=== PATIENT | female | born 1950 | race Caucasian/White ===

== ENCOUNTER → 2017-09-25 | Day surgery (SDC) | payer MEDICARE ==
[~2017-09-25] MED LIST: ACETAMINOPHEN 1000 MG/100 ML 100 ML IV ONE; BUPIVACAINE HCL PF 0.25% 30 ML VIAL ONE; BUPIVACAINE/EPINEPHRINE 0.5% PF 10 ML VIAL ONE; CALC600T34 PO; FISH1000 PO; GLUCTAB47 PO; LACTATED RINGER'S 1000 ML INJ 1,000 ML ONE; LORT5TAB PO; MIDAZOLAM HCL 2 MG/2 ML VIAL ONE; ONDANSETRON HCL 4 MG/2 ML VIAL IV PUSH ONE; PROPOFOL 200 MG/20 ML AMP IV ONE; TAB-TAB PO; ceFAZolin 2 GM PREMIX 50 ML ONE
--- NOTE | 2017-09-25 09:31 | PD.OP ---
cc: Kenn Perez MD Operative Report Date of Surgery: September 25, 2017 Preoperative Diagnosis: Right lower quadrant incisional hernia Postoperative Diagnosis: Same Procedure: Open repair right lower quadrant incisional hernia with placement of retro- muscular mesh using modified separation of components Anesthesia: General Surgeon: Kenn Perez A Auxiliary(s): [place] Operation and Findings: Indications for procedure This is a pleasant 67-year-old woman with previously undergone right colon resection by Dr. Adina Savage for a benign flat polyp adjacent to the appendiceal orifice. She has had increasing episodes of discomfort associated with a bulge at the right lower quadrant incision. Findings were consistent with reducible incisional hernia. She is desirous of repair. Intraoperative findings Approximate 4 cm fascial defect with reducible contents. Mesh placed in retro- muscular plane. Estimated blood loss less than 5 mL. Description of procedure in detail Patient was identified as Janet Smith taken to the operating room and placed in a supine position. Sequential compression device were placed on bilateral lower extremities. Following induction of adequate general anesthesia the patient's abdomen was prepped and draped in usual sterile fashion with Betadine. A timeout procedure was performed. Following completion timeout procedure everyone's satisfaction within the room local anesthetic was infiltrated generously in and around the proposed incision site. The previous right lower quadrant scar which tapered inferiorly laterally was reopened with a scalpel. Hemostasis was controlled with electrocautery. Dissection continued posteriorly through subcutaneous fatty tissue until the hernia sac was identified. The hernia sac was loose did not have any incarcerated contents, and was from the fatty tissue down to the level of fascial planes. The fascia and muscular layers were from the hernia sac and the hernia sac was imbricated with a running 2-0 Vicryl suture. A retro-muscular plane medially consisting of the retrograde retrorectus location and laterally posterior to the internal oblique muscle was circumferentially cleared using electrocautery. A small bleeding point in the muscle was controlled with interrupted 3-0 Vicryl suture. Irrigation ensued. Hemostasis was assured. The retro-muscular plane was measured at 6 x 5 cm and a piece of atrium Prolite mesh was cut from a 3 x 6" piece to appropriate size placed in the rectum muscular position and held in place with 6 interrupted 2-0 PDS sutures making the mesh taut.. Irrigation ensued. There was no evidence of bleeding. The anterior fascial layers were approximated with running 2-0 PDS suture. The subcutaneous fatty tissue layer was approximated with interrupted 2-0 and 3-0 Vicryl sutures. The skin was approximated with a running 4-0 Monocryl subcuticular suture. Dressings were applied with Mastisol half-inch brown Steri-Strips gauze and Tegaderm. The patient tolerated the procedure without apparent complication. Sponge needle and instrument counts were correct at the end of the case. The patient was transported to PACU in stable condition. Kenn Perez MD September 25, 2017 09:31
== END | disposition home or self-care (01) ==
LOC: ESDC 07:45
PROVIDERS: ATTEND Surgery Trauma Surgery
DX: K43.2 Incisional hernia without obstruction or gangrene (principal)
CPT/HCPCS: 00832; 49560; 49568; C1781; J0131; J0690; J2405; J3010; J7120; J2250